=== PATIENT | male | born 1935 | race Two or more races ===

== ENCOUNTER 2018-04-25 19:57 | Inpatient (IN) | payer MEDICARE ==
[~2018-04-25] VITALS: Ht 172.7 cm; Wt 89.5 kg
[2018-04-25 20:33] LABS: BASOPHILS % (AUTO) 0.3 % (0.0-2.0); HEMATOCRIT 31.5 % (36.7-47.1); HEMOGLOBIN 10.7 g/dL (12.5-16.3); LYMPHOCYTES # (AUTO) 0.4 K/uL (20.0-40.0); LYMPHOCYTES % (AUTO) 10.7 % (20.5-51.5); MEAN CORPUSCULAR HEMOGLOBIN 30.3 uug (23.8-33.4); MEAN CORPUSCULAR HGB CONC 34 g/dL (32.5-36.3); MEAN CORPUSCULAR VOLUME 89.1 fL (73.0-96.2); MONOCYTES # (AUTO) 0.3 K/uL (2.0-10.0); MONOCYTES % (AUTO) 7.1 % (0.0-11.0); NEUTROPHILS # (AUTO) 3.1 K/uL (1.8-8.9); NEUTROPHILS % (AUTO) 80.9 % (38.5-71.5); PLATELET COUNT (AUTO) 122 K/uL (152-348); RED BLOOD CELL COUNT(AUTO) 3.53 MIL/uL (4.06-5.63); WHITE BLOOD COUNT (AUTO) 3.8 K/uL (3.6-10.2)
[2018-04-25 20:43] LABS: CARBON DIOXIDE 27 mmol/L (21-32); CHLORIDE 100 mmol/L (98-107); CREATININE 1.5 mg/dL (0.6-1.3); POTASSIUM 4.3 mmol/L (3.5-5.1); UREA NITROGEN, BLOOD 20 mg/dL (7-18)
[2018-04-25] MEDS ORDERED: INSULIN REGULAR, HUMAN 300 UNIT/3 ML VIAL ONE (20:45)
[2018-04-25] MEDS ORDERED: INSULIN REGULAR, HUMAN 1,000 UNITS/10 ML VIAL IV ONE (20:45)
[2018-04-25] MEDS ORDERED: IV NS 1000 ML 1,000 ML IV ONE (20:45)
[2018-04-25 20:51] LABS: GLUCOSE 492 mg/dL (74-106)
[2018-04-25 21:00] LABS: ALANINE AMINOTRANSFERASE 23 U/L (16-63); ALKALINE PHOSPHATASE 81 U/L (50-136); ASPARTATE AMINOTRANSFERASE 12 U/L (15-37); BILIRUBIN,DIRECT 0.2 mg/dL (0.0-0.2); BILIRUBIN,TOTAL 0.7 mg/dL (0.1-1.0)
[2018-04-25] MEDS ORDERED: ESCI10TA PO (21:00)
[2018-04-25] MEDS ORDERED: CYAN-10 IJ (21:00)
[2018-04-25] MEDS ORDERED: NITR0.4T48 SL (21:00)
[2018-04-25] MEDS ORDERED: QUET25TA PO (21:00)
[2018-04-25] MEDS ORDERED: INSU100V7 SQ (21:00)
[2018-04-25] MEDS ORDERED: MAGN400O6 PO (21:00)
[2018-04-25] MEDS ORDERED: CYAN10009 PO (21:00)
[2018-04-25] MEDS ORDERED: NA P133E RC (21:00)
[2018-04-25] MEDS ORDERED: ROSU20TA PO (21:00)
[2018-04-25] MEDS ORDERED: METF10004 PO (21:00)
[2018-04-25] MEDS ORDERED: FOLI1TAB16 PO (21:00)
[2018-04-25] MEDS ORDERED: BISA10SU12 RC (21:00)
[2018-04-25] MEDS ORDERED: MELO-107 PO (21:00)
[2018-04-25] MEDS ORDERED: TAMS-3 PO (21:00)
[2018-04-25] MEDS ORDERED: SITA50TA PO (21:00)
[2018-04-25] MEDS ORDERED: FINA5TAB11 PO (21:00)
[2018-04-25] MEDS ORDERED: ASPI-605 PO (21:00)
[2018-04-25] MEDS ORDERED: CARV3.122 PO (21:00)
[2018-04-25] MEDS ORDERED: PIPERACILLIN SODIUM/TAZOBACTAM 3.375 G in IV DEXTROSE 5% 50 ML IV ONE (21:30)
[2018-04-25] MEDS ORDERED: IV NORMAL SALINE 1000 ML BAG IV ONE (21:30)
[2018-04-25] MEDS ORDERED: PIPERACILLIN/TAZOBACTAM/D5W 50 ML IV ONE (21:49)
[2018-04-25 22:04] LABS: *BILIRUBIN,URIN NEGATIVE (NEGATIVE); *BLOOD, URINE NEGATIVE (NEGATIVE); *CLARITY,URINE SLIGHTLY CLOUDY (CLEAR); *COLOR,URINE YELLOW (YELLOW); *KETONES,URINE NEGATIVE (NEGATIVE); *PROTEIN,URINE NEGATIVE (NEGATIVE); *UROBILINOGEN,URINE 0.2 E.U./dl (NORMAL); LEUKOCYTE ESTERASE ,URINE TRACE (NEGATIVE); NITRITE, URINE NEGATIVE (NEGATIVE); PH,URINE 5.5 (5.0-8.0); UGLUCOSE 2+ (NEGATIVE)
[2018-04-25 22:14] LABS: SQUAMOUS EPITHELIAL CELL,UR FEW /HPF (NONE SEEN)
[2018-04-25 22:15] LABS: BACTERIA,URINE MODERATE /HPF (NONE SEEN); RBC,URINE 0-3 /HPF (0-3); WBC,URINE 20-50 /HPF (0-3)
[2018-04-25 23:30] VITALS: BP 92/54
[2018-04-25] MEDS ORDERED: ACETAMINOPHEN 325 MG TABLET PO PRN (23:30)
[2018-04-25] MEDS ORDERED: BISACODYL 10 MG SUPP.RECT RC PRN (23:30)
[2018-04-25] MEDS: INSULIN GLARGINE,HUM 300 UNITS/3 ML CARTRIDGE SQ SCH (23:30)
[2018-04-25] MEDS ORDERED: ZOLPIDEM 5 MG TABLET PO PRN (23:30)
[2018-04-25] MEDS ORDERED: FLEET ENEMA 133 ML BOTTLE RC PRN (23:30)
[2018-04-25] MEDS ORDERED: HYDROCODONE/APAP 5-325MG TABLET PO PRN (23:30)
[2018-04-25] MEDS ORDERED: MAGNESIUM HYDROXIDE 30 ML LIQUID UDC PO PRN ×2 (23:30)
[2018-04-25] MEDS ORDERED: Z GUARD REMEDY PASTE 57 GM TUBE TOP PRN (23:30)
[2018-04-25] MEDS ORDERED: NITROGLYCERIN 0.4 MG/TAB BOTTLE SL PRN (23:30)
[2018-04-25] MEDS ORDERED: ONDANSETRON 4 MG/2 ML VIAL IV PRN (23:30)
[2018-04-26] MEDS ORDERED: BLOOD SUGAR DIAGNOSTIC 1 EACH STRIP VI SCH
[2018-04-26] MEDS ORDERED: INSULIN REGULAR, HUMAN 300 UNIT/3 ML VIAL SQ PRN
[2018-04-26] MEDS ORDERED: DEXTROSE 50% 50 ML DISP.SYRIN IV PRN ×2
[2018-04-26] MEDS: BLOOD SUGAR DIAGNOSTIC 1 EACH STRIP VI SCH ×5 (00:42→21:07)
[2018-04-26] MEDS ORDERED: CEFTRIAXONE 1 G VIAL ONE (00:48)
[2018-04-26] MEDS: CEFTRIAXONE 1 G in IV DEXTROSE 5% 50 ML IV SCH ×2 (01:15→21:07)
[2018-04-26 03:33] VITALS: BP 127/62
[2018-04-26 06:38] LABS: BASOPHILS % (AUTO) 0.2 % (0.0-2.0); EOSINOPHILS # (AUTO) 0.1 K/uL (0.0-0.7); EOSINOPHILS % (AUTO) 2.3 % (0.0-7.0); HEMATOCRIT 28.2 % (36.7-47.1); HEMOGLOBIN 9.6 g/dL (12.5-16.3); LYMPHOCYTES # (AUTO) 0.6 K/uL (20.0-40.0); LYMPHOCYTES % (AUTO) 18.6 % (20.5-51.5); MEAN CORPUSCULAR HEMOGLOBIN 30.3 uug (23.8-33.4); MEAN CORPUSCULAR HGB CONC 34 g/dL (32.5-36.3); MEAN CORPUSCULAR VOLUME 88.4 fL (73.0-96.2); MONOCYTES # (AUTO) 0.4 K/uL (2.0-10.0); MONOCYTES % (AUTO) 11.2 % (0.0-11.0); NEUTROPHILS # (AUTO) 2.3 K/uL (1.8-8.9); NEUTROPHILS % (AUTO) 67.7 % (38.5-71.5); PLATELET COUNT (AUTO) 113 K/uL (152-348); RED BLOOD CELL COUNT(AUTO) 3.19 MIL/uL (4.06-5.63); WHITE BLOOD COUNT (AUTO) 3.5 K/uL (3.6-10.2)
[2018-04-26 06:49] LABS: ALANINE AMINOTRANSFERASE 22 U/L (16-63); ALKALINE PHOSPHATASE 73 U/L (50-136); ASPARTATE AMINOTRANSFERASE 13 U/L (15-37); BILIRUBIN,TOTAL 0.5 mg/dL (0.2-1.0); CARBON DIOXIDE 27 mmol/L (21-32); CHLORIDE 107 mmol/L (98-107); CHOLESTEROL 100 mg/dL (<200); CREATININE 1.4 mg/dL (0.6-1.3); GLUCOSE 254 mg/dL (74-106); HDL CHOLESTEROL 45 mg/dL (40-60); MAGNESIUM 1.9 mg/dL (1.8-2.4); PHOSPHOROUS 3.9 mg/dL (2.5-4.9); POTASSIUM 4.1 mmol/L (3.5-5.1); TRIGLYCERIDES 59 MG/DL (30-150); UREA NITROGEN, BLOOD 16 mg/dL (7-18)
[2018-04-26] MEDS: IV NS 1000 ML 1,000 ML IV PRN ×2 (06:59→16:12)
[2018-04-26 07:13] LABS: THYROID STIMULATING HORMONE 0.883 mIU/mL (0.358-3.740)
[2018-04-26] MEDS: INSULIN REGULAR, HUMAN 300 UNIT/3 ML VIAL SQ PRN ×4 (08:03→21:10)
[2018-04-26] MEDS: ASPIRIN EC 81 MG TABLET.DR PO SCH (08:04)
[2018-04-26] MEDS: CARVEDILOL 3.125 MG TABLET PO SCH ×2 (08:04→16:17)
[2018-04-26] MEDS: FOLIC ACID 1 MG TABLET PO SCH (08:05)
[2018-04-26] MEDS: LINAGLIPTIN 5 MG TABLET PO SCH (08:05)
[2018-04-26] MEDS: ESCITALOPRAM OXALATE 10 MG TABLET PO SCH (08:05)
[2018-04-26] MEDS: QUETIAPINE FUMARATE 25 MG TABLET PO SCH ×2 (08:05→16:18)
[2018-04-26] MEDS: FINASTERIDE 5 MG TABLET PO SCH (08:05)
[2018-04-26] MEDS: CYANOCOBALAMIN 1,000 MCG TABLET PO SCH (08:05)
[2018-04-26] MEDS: METFORMIN HCL 500 MG TABLET PO SCH ×2 (08:10→16:17)
[2018-04-26] MEDS ORDERED: Medication Not On Formulary EA (Rosuvastatin Calcium (Crestor) 20 MG) PO SCH (09:00)
[2018-04-26] MEDS ORDERED: Medication Not On Formulary EA (Meloxicam 15 MG) PO SCH (09:00)
[2018-04-26] MEDS ORDERED: Medication Not On Formulary EA (Metformin Hcl 1,000 MG) PO SCH (09:00)
[2018-04-26 16:05] VITALS: BP 134/59
[2018-04-26] MEDS: MELOXICAM 7.5 MG TABLET PO SCH (16:16)
[2018-04-26 19:00] VITALS: BP 113/55
[2018-04-26] MEDS: TAMSULOSIN HCL 0.4 MG CAP.SR.24H PO SCH (21:07)
[2018-04-26] MEDS: ATORVASTATIN 40 MG TABLET PO SCH (21:07)
[2018-04-26] MEDS: INSULIN GLARGINE,HUM 300 UNITS/3 ML CARTRIDGE SQ SCH (21:10)
[2018-04-27 04:00] VITALS: BP 113/54
[2018-04-27] MEDS: IV NS 1000 ML 1,000 ML IV PRN (06:49)
[2018-04-27] MEDS: BLOOD SUGAR DIAGNOSTIC 1 EACH STRIP VI SCH ×4 (06:53→20:36)
[2018-04-27] MEDS: METFORMIN HCL 500 MG TABLET PO SCH ×2 (08:28→17:14)
[2018-04-27] MEDS: MELOXICAM 7.5 MG TABLET PO SCH (08:28)
[2018-04-27] MEDS: ASPIRIN EC 81 MG TABLET.DR PO SCH (09:24)
[2018-04-27] MEDS: FOLIC ACID 1 MG TABLET PO SCH (09:24)
[2018-04-27] MEDS: ESCITALOPRAM OXALATE 10 MG TABLET PO SCH (09:25)
[2018-04-27] MEDS: CARVEDILOL 3.125 MG TABLET PO SCH ×2 (09:25→16:38)
[2018-04-27] MEDS: FINASTERIDE 5 MG TABLET PO SCH (09:25)
[2018-04-27] MEDS: LINAGLIPTIN 5 MG TABLET PO SCH (09:25)
[2018-04-27] MEDS: QUETIAPINE FUMARATE 25 MG TABLET PO SCH ×2 (09:25→16:38)
[2018-04-27] MEDS: CYANOCOBALAMIN 1,000 MCG TABLET PO SCH (09:25)
[2018-04-27 11:40] VITALS: BP 162/81
[2018-04-27] MEDS: INSULIN REGULAR, HUMAN 300 UNIT/3 ML VIAL SQ PRN ×2 (12:41→17:41)
[2018-04-27 19:00] VITALS: BP 131/59
[2018-04-27] MEDS: ATORVASTATIN 40 MG TABLET PO SCH (20:33)
[2018-04-27] MEDS: TAMSULOSIN HCL 0.4 MG CAP.SR.24H PO SCH (20:33)
[2018-04-27] MEDS: CEFTRIAXONE 1 G in IV DEXTROSE 5% 50 ML IV SCH (20:33)
[2018-04-27] MEDS: INSULIN GLARGINE,HUM 300 UNITS/3 ML CARTRIDGE SQ SCH (21:37)
[2018-04-27] MEDS ORDERED: CLONAZEPAM 0.5 MG TABLET ONE (22:39)
[2018-04-28] MEDS: IV NS 1000 ML 1,000 ML IV PRN (01:33)
[2018-04-28 04:00] VITALS: BP 126/50
[2018-04-28] MEDS: MELOXICAM 7.5 MG TABLET PO SCH (07:37)
[2018-04-28] MEDS: METFORMIN HCL 500 MG TABLET PO SCH ×2 (07:37→17:23)
[2018-04-28] MEDS: BLOOD SUGAR DIAGNOSTIC 1 EACH STRIP VI SCH ×4 (07:37→20:50)
[2018-04-28] MEDS: FOLIC ACID 1 MG TABLET PO SCH (08:06)
[2018-04-28] MEDS: ASPIRIN EC 81 MG TABLET.DR PO SCH (08:06)
[2018-04-28] MEDS: LINAGLIPTIN 5 MG TABLET PO SCH (08:06)
[2018-04-28] MEDS: FINASTERIDE 5 MG TABLET PO SCH (08:06)
[2018-04-28] MEDS: QUETIAPINE FUMARATE 25 MG TABLET PO SCH ×2 (08:07→16:47)
[2018-04-28] MEDS: ESCITALOPRAM OXALATE 10 MG TABLET PO SCH (08:07)
[2018-04-28] MEDS: CYANOCOBALAMIN 1,000 MCG TABLET PO SCH (08:07)
[2018-04-28] MEDS: CARVEDILOL 3.125 MG TABLET PO SCH ×2 (08:10→16:46)
[2018-04-28 11:32] VITALS: BP 112/60
[2018-04-28] MEDS: INSULIN REGULAR, HUMAN 300 UNIT/3 ML VIAL SQ PRN ×2 (12:40→17:25)
[2018-04-28 15:33] VITALS: BP 118/57
[2018-04-28 19:00] VITALS: BP 146/67
[2018-04-28] MEDS: ATORVASTATIN 40 MG TABLET PO SCH (20:48)
[2018-04-28] MEDS: TAMSULOSIN HCL 0.4 MG CAP.SR.24H PO SCH (20:48)
[2018-04-28] MEDS: CEFTRIAXONE 1 G in IV DEXTROSE 5% 50 ML IV SCH (20:50)
[2018-04-28] MEDS: INSULIN GLARGINE,HUM 300 UNITS/3 ML CARTRIDGE SQ SCH (20:50)
[2018-04-29 04:00] VITALS: BP 121/49
[2018-04-29] MEDS: BLOOD SUGAR DIAGNOSTIC 1 EACH STRIP VI SCH ×4 (06:39→20:40)
[2018-04-29] MEDS: ASPIRIN EC 81 MG TABLET.DR PO SCH (08:07)
[2018-04-29] MEDS: QUETIAPINE FUMARATE 25 MG TABLET PO SCH ×2 (08:07→17:04)
[2018-04-29] MEDS: LINAGLIPTIN 5 MG TABLET PO SCH (08:07)
[2018-04-29] MEDS: FOLIC ACID 1 MG TABLET PO SCH (08:08)
[2018-04-29] MEDS: CYANOCOBALAMIN 1,000 MCG TABLET PO SCH (08:08)
[2018-04-29] MEDS: FINASTERIDE 5 MG TABLET PO SCH (08:08)
[2018-04-29] MEDS: ESCITALOPRAM OXALATE 10 MG TABLET PO SCH (08:08)
[2018-04-29] MEDS: METFORMIN HCL 500 MG TABLET PO SCH ×2 (08:08→17:04)
[2018-04-29] MEDS: MELOXICAM 7.5 MG TABLET PO SCH (08:08)
[2018-04-29] MEDS: CARVEDILOL 3.125 MG TABLET PO SCH ×2 (08:11→17:08)
[2018-04-29 12:00] VITALS: BP 121/56
[2018-04-29 16:07] VITALS: BP 121/60
[2018-04-29] MEDS: CEFTRIAXONE 1 G in IV DEXTROSE 5% 50 ML IV SCH (20:18)
[2018-04-29] MEDS: TAMSULOSIN HCL 0.4 MG CAP.SR.24H PO SCH (20:18)
[2018-04-29] MEDS: ATORVASTATIN 40 MG TABLET PO SCH (20:18)
[2018-04-29 20:27] VITALS: BP 102/48
[2018-04-29] MEDS: INSULIN GLARGINE,HUM 300 UNITS/3 ML CARTRIDGE SQ SCH (20:27)
[2018-04-30 04:48] VITALS: BP 115/52
[2018-04-30] MEDS: BLOOD SUGAR DIAGNOSTIC 1 EACH STRIP VI SCH ×2 (06:35→12:10)
[2018-04-30] MEDS: ASPIRIN EC 81 MG TABLET.DR PO SCH (08:12)
[2018-04-30] MEDS: FINASTERIDE 5 MG TABLET PO SCH (08:13)
[2018-04-30] MEDS: MELOXICAM 7.5 MG TABLET PO SCH (08:13)
[2018-04-30] MEDS: METFORMIN HCL 500 MG TABLET PO SCH (08:13)
[2018-04-30] MEDS: ESCITALOPRAM OXALATE 10 MG TABLET PO SCH (08:13)
[2018-04-30] MEDS: LINAGLIPTIN 5 MG TABLET PO SCH (08:13)
[2018-04-30] MEDS: QUETIAPINE FUMARATE 25 MG TABLET PO SCH (08:13)
[2018-04-30] MEDS: CYANOCOBALAMIN 1,000 MCG TABLET PO SCH (08:13)
[2018-04-30] MEDS: CARVEDILOL 3.125 MG TABLET PO SCH (08:14)
[2018-04-30] MEDS: FOLIC ACID 1 MG TABLET PO SCH (08:14)
[2018-04-30 11:08] VITALS: BP 115/54
== END 2018-04-30 15:00 | DRG 871 ==
LOC: ER 20:01 → TELE 23:16 → MED 04-26 15:39
PROVIDERS: ADMIT Internal Medicine; ATTEND Internal Medicine
DX: A41.9 Sepsis, unspecified organism (principal); G92 Toxic encephalopathy; N17.0 Acute kidney failure with tubular necrosis; N39.0 Urinary tract infection, site not specified; F33.3 Major depressive disorder, recurrent, severe with psychotic symptoms; D63.8 Anemia in other chronic diseases classified elsewhere; E78.5 Hyperlipidemia, unspecified; F03.90 Unspecified dementia, unspecified severity, without behavioral disturbance, psychotic disturbance, mood disturbance, and anxiety; I25.10 Atherosclerotic heart disease of native coronary artery without angina pectoris; N40.1 Benign prostatic hyperplasia with lower urinary tract symptoms; Z86.73 Personal history of transient ischemic attack (TIA), and cerebral infarction without residual deficits; E86.9 Volume depletion, unspecified; N18.9 Chronic kidney disease, unspecified; I12.9 Hypertensive chronic kidney disease with stage 1 through stage 4 chronic kidney disease, or unspecified chronic kidney disease; E11.21 Type 2 diabetes mellitus with diabetic nephropathy; T39.395A Adverse effect of other nonsteroidal anti-inflammatory drugs [NSAID], initial encounter; Y92.009 Unspecified place in unspecified non-institutional (private) residence as the place of occurrence of the external cause; Z79.84 Long term (current) use of oral hypoglycemic drugs; F29 Unspecified psychosis not due to a substance or known physiological condition; N13.9 Obstructive and reflux uropathy, unspecified
CPT/HCPCS: 36415; 70030-TC; 70450; 71045; 83605; 83735; 84100; 84443; 85025; 85730; 87040; 87086; 93005; 97165; A4663; J0696; J1815; J2543; J7030; J7060

== ENCOUNTER 2018-10-29 20:00 | Inpatient (IN) | payer MEDICARE ==
[~2018-10-29] VITALS: Ht 182.9 cm; Wt 78.5 kg
[~2018-10-29 20:00] MED LIST: ACET-2154 PO; ACET325T53 PO; ALBU2.5V7 NEB; ALPR0.255 PO; ASPI-605 PO; ATOR40TA PO; BISA10SU12 RC; CARV3.122 PO; CYAN-10 IJ; CYAN10009 PO; ESCI10TA PO; ESCI10TA55 PO; FINA5TAB11 PO; FOLI1TAB16 PO; HYDR-3326 PO; INSU100V7 SQ; Insulin Glargine,Hum SQ; MAGN400O6 PO; MELO-107 PO; METF-442 PO; MINE133E RC; NA P133E RC; NITR0.4T48 SL; ONDA4SYR IJ; ONDA4VIA23 IJ; PANT40TA2 IV; PANT40VI IV; QUET25TA PO; ROSU20TA2 PO; SITA50TA PO; TAMS-3 PO; TAMS0.4C34 PO; [UNRECOGNIZED DRUG - CODE] IV
--- NOTE | 2018-10-29 20:02 | NUR ---
Patient BIB EMS. He was in process of moving to an assisted living facility from his house. He developed SOB/Anxiety at that time. 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 Noted with increased work of breathing. patient is AAOx4.
[2018-10-29] MEDS ORDERED: ALBUTEROL SULFATE 2.5 MG/3 ML NEBU ONE (20:14)
[2018-10-29] MEDS ORDERED: ALBUTEROL SULFATE 2.5 MG/3 ML NEBU NEB ONE (20:15)
--- NOTE | 2018-10-29 20:19 | NUR ---
RT at bedside
[2018-10-29 20:21] LABS: BASOPHILS % (AUTO) 0.1 % (0.0-2.0); EOSINOPHILS # (AUTO) 0.1 K/uL (0.0-0.7); EOSINOPHILS % (AUTO) 1.6 % (0.0-7.0); HEMATOCRIT 29.2 % (36.7-47.1); HEMOGLOBIN 9.8 g/dL (12.5-16.3); LYMPHOCYTES # (AUTO) 0.9 K/uL (20.0-40.0); LYMPHOCYTES % (AUTO) 12.9 % (20.5-51.5); MEAN CORPUSCULAR HEMOGLOBIN 29.9 uug (23.8-33.4); MEAN CORPUSCULAR HGB CONC 34 g/dL (32.5-36.3); MEAN CORPUSCULAR VOLUME 89.2 fL (73.0-96.2); MONOCYTES # (AUTO) 0.4 K/uL (2.0-10.0); MONOCYTES % (AUTO) 5.3 % (0.0-11.0); NEUTROPHILS # (AUTO) 5.8 K/uL (1.8-8.9); NEUTROPHILS % (AUTO) 80.1 % (38.5-71.5); PLATELET COUNT (AUTO) 195 K/uL (152-348); RED BLOOD CELL COUNT(AUTO) 3.27 MIL/uL (4.06-5.63); WHITE BLOOD COUNT (AUTO) 7.3 K/uL (3.6-10.2)
[2018-10-29] MEDS ORDERED: NITROGLYCERIN 4.9 GM SPRAY TL ONE (20:29)
[2018-10-29] MEDS ORDERED: FUROSEMIDE 40 MG/4 ML VIAL ONE ×2 (20:29→20:58)
[2018-10-29 20:31] LABS: CARBON DIOXIDE 28 mmol/L (21-32); CHLORIDE 101 mmol/L (98-107); CREATININE 1.7 mg/dL (0.6-1.3); POTASSIUM 4.2 mmol/L (3.5-5.1); UREA NITROGEN, BLOOD 18 mg/dL (7-18)
--- NOTE | 2018-10-29 20:33 | NUR ---
Patient noted with increasing SOB @ 2028, given 40mg IVP Lasix @ 2029, BP @ 182/107. Nitro Intranasal [place] x 1 given @ 2029 by ER . Second spray given @ 2032 by ER . BP @ 2034 is 177/105.
[2018-10-29 20:35] LABS: GLUCOSE 362 mg/dL (74-106)
[2018-10-29 20:37] LABS: ALANINE AMINOTRANSFERASE 19 U/L (16-63); ALKALINE PHOSPHATASE 115 U/L (50-136); ASPARTATE AMINOTRANSFERASE 9 U/L (15-37); BILIRUBIN,DIRECT 0.1 mg/dL (0.0-0.2); BILIRUBIN,TOTAL 0.5 mg/dL (0.2-1.0); TOTAL PROTEIN, SERUM 7.8 g/dL (6.4-8.2)
[2018-10-29] MEDS ORDERED: MORPHINE SULFATE 4 MG/1 ML DISP.SYRIN ONE (20:39)
[2018-10-29] MEDS ORDERED: ONDANSETRON 4 MG/2 ML VIAL ONE (20:39)
[2018-10-29] MEDS ORDERED: FUROSEMIDE 20 MG/2 ML VIAL IV ONE ×2 (20:45→21:00)
[2018-10-29] MEDS ORDERED: MORPHINE SULFATE 2 MG/1 ML DISP.SYRIN IV ONE (20:45)
[2018-10-29] MEDS ORDERED: ONDANSETRON 4 MG/2 ML VIAL IV ONE (20:45)
[2018-10-29] MEDS: NITROGLYCERIN 4.9 GM SPRAY TL PRN ×2 (20:46→20:59)
--- NOTE | 2018-10-29 20:47 | NUR ---
3rd Nitro [place] given by ER @ 2034. BP 172/103
--- NOTE | 2018-10-29 20:49 | NUR ---
1 dose of Intranasal Nitro given by PATI GRIGGS at this time. BP 170/92
--- NOTE | 2018-10-29 21:20 | NUR ---
Patient noted with inproving respirations, decreased work of breathing at this time. No acute distress noted. VSS
[2018-10-29] MEDS ORDERED: BUMETANIDE INJ 6 MG in IV DEXTROSE 5% 36 ML IV ONE (21:30)
[2018-10-29] MEDS ORDERED: NITROGLYCERIN OINT 1 GM PACKET TP ONE (21:30)
--- NOTE | 2018-10-29 21:40 | NUR ---
Pt. admitted to Tele TD , under care of Randal Maldonado. Report given to Emily MARTINEZ on CCU. Patient admitted as Tele TD, going to room CCU3 Belongs List completed
--- NOTE | 2018-10-29 22:00 | NUR ---
Admitted to CCU-3 as CHRIS Status, Dx: CHF under the services of Dr. Randal Maldonado/[facility]. Came in from ER via gurney on 100% non-rebreather mask, in no acute distress. Routine CCU/CHRIS admission care rendered. Dr. Rene Maldonado notified of admission. Son Cooper here for brief time. Plans of care explained to son and pt; all belongings sent home with son.
[2018-10-29 22:10] VITALS: BP 114/81
[2018-10-29] MEDS ORDERED: NITROGLYCERIN 0.4 MG/TAB BOTTLE SL PRN (22:45)
[2018-10-29] MEDS ORDERED: DEXTROSE 50% 50 ML DISP.SYRIN IV PRN (22:45)
[2018-10-29 23:00] VITALS: BP 116/68
[2018-10-29] MEDS ORDERED: ONDANSETRON 4 MG/2 ML VIAL IV PRN (23:30)
[2018-10-29] MEDS ORDERED: Z GUARD REMEDY PASTE 57 GM TUBE TOP PRN (23:30)
[2018-10-29] MEDS ORDERED: HYDROCODONE/APAP 5-325MG TABLET PO PRN (23:30)
[2018-10-29] MEDS ORDERED: ZOLPIDEM 5 MG TABLET PO PRN (23:30)
[2018-10-29] MEDS ORDERED: MORPHINE SULFATE 4 MG/1 ML DISP.SYRIN IV PRN (23:30)
[2018-10-29] MEDS ORDERED: ACETAMINOPHEN 325 MG TABLET PO PRN (23:30)
[2018-10-29] MEDS ORDERED: ENOXAPARIN SODIUM 40 MG/0.4 ML DISP.SYRIN SQ SCH (23:30)
[2018-10-29 23:59] VITALS: BP 123/63
[2018-10-30] VITALS (14 sets, daily range): BP systolic 87–140; BP diastolic 43–75
[2018-10-30] MEDS ORDERED: ENOXAPARIN SODIUM 40 MG/0.4 ML DISP.SYRIN SQ ONE (00:15)
[2018-10-30] MEDS ORDERED: ENOXAPARIN SODIUM 40 MG/0.4 ML DISP.SYRIN SQ SCH ×2 (00:15→21:00)
--- NOTE | 2018-10-30 00:15 | NUR ---
Lovenox 40 mg timed by [facility] for 0015 NOT GIVEN; already given at 2345 on 2018.
--- NOTE | 2018-10-30 00:30 | NUR ---
Pt was placed on Bumex drip and has been voiding large frequent amounts of clear pale yellow urine. Encouraged to sleep in between activities. O2 titrating to keep sat above 92%, now on nasal cannula and continues to saturate well.
[2018-10-30] MEDS ORDERED: POTASSIUM CHLORIDE 20 MEQ TAB.PRT.SR PO ONE (04:00)
[2018-10-30 05:25] LABS: BASOPHILS % (AUTO) 0.1 % (0.0-2.0); EOSINOPHILS % (AUTO) 0.6 % (0.0-7.0); HEMATOCRIT 25.6 % (36.7-47.1); LYMPHOCYTES # (AUTO) 1.2 K/uL (20.0-40.0); LYMPHOCYTES % (AUTO) 15.3 % (20.5-51.5); MEAN CORPUSCULAR HEMOGLOBIN 30.5 uug (23.8-33.4); MEAN CORPUSCULAR HGB CONC 35 g/dL (32.5-36.3); MEAN CORPUSCULAR VOLUME 86.6 fL (73.0-96.2); MONOCYTES # (AUTO) 0.5 K/uL (2.0-10.0); MONOCYTES % (AUTO) 6.4 % (0.0-11.0); NEUTROPHILS % (AUTO) 77.6 % (38.5-71.5); PLATELET COUNT (AUTO) 193 K/uL (152-348); RED BLOOD CELL COUNT(AUTO) 2.96 MIL/uL (4.06-5.63); WHITE BLOOD COUNT (AUTO) 7.7 K/uL (3.6-10.2)
[2018-10-30 05:37] LABS: ALANINE AMINOTRANSFERASE 17 U/L (16-63); ALKALINE PHOSPHATASE 106 U/L (50-136); ASPARTATE AMINOTRANSFERASE 8 U/L (15-37); BILIRUBIN,TOTAL 0.6 mg/dL (0.2-1.0); CARBON DIOXIDE 33 mmol/L (21-32); CHLORIDE 101 mmol/L (98-107); CHOLESTEROL 127 mg/dL (<200); CREATININE 1.7 mg/dL (0.6-1.3); GLUCOSE 296 mg/dL (74-106); HDL CHOLESTEROL 44 mg/dL (40-60); MAGNESIUM 1.8 mg/dL (1.8-2.4); PHOSPHOROUS 3.9 mg/dL (2.5-4.9); POTASSIUM 3.8 mmol/L (3.5-5.1); TOTAL PROTEIN, SERUM 7.5 g/dL (6.4-8.2); TRIGLYCERIDES 82 MG/DL (30-150); UREA NITROGEN, BLOOD 18 mg/dL (7-18)
[2018-10-30 05:45] LABS: THYROID STIMULATING HORMONE 1.301 mIU/mL (0.358-3.740)
--- NOTE | 2018-10-30 06:00 | NUR ---
Comfortable night, denies pain/discomfort. Titrating o2 and tolerated well. Continues to diurese with Bumex drip completed. Please see CCU/CHRIS flowsheet for trends and clinical data.
[2018-10-30] MEDS: BLOOD SUGAR DIAGNOSTIC 1 EACH STRIP VI SCH ×4 (07:57→21:04)
[2018-10-30] MEDS: CARVEDILOL 3.125 MG TABLET PO SCH ×2 (08:06→16:35)
[2018-10-30] MEDS: FINASTERIDE 5 MG TABLET PO SCH (08:06)
[2018-10-30] MEDS: FOLIC ACID 1 MG TABLET PO SCH (08:06)
[2018-10-30] MEDS: ASPIRIN EC 81 MG TABLET.DR PO SCH (08:06)
[2018-10-30] MEDS: ESCITALOPRAM OXALATE 10 MG TABLET PO SCH (08:06)
--- NOTE | 2018-10-30 08:56 | NUR ---
Patient seen by Nephrology services, Dr. Sim full report given see order hx.
--- NOTE | 2018-10-30 10:00 | NUR ---
After many accidents using the urinal condom catheter applied.
[2018-10-30] MEDS ORDERED: BUMETANIDE INJ 4 MG in IV DEXTROSE 5% 24 ML IV ONE (12:00)
--- NOTE | 2018-10-30 12:00 | NUR ---
Patient attempting to remove condom catheter and educated on the need of catheter due to high urine output. Patient becoming verbally abusive.
[2018-10-30] MEDS: HEPARIN/D5W DRIP 500 ML IV PRN (13:02)
--- NOTE | 2018-10-30 14:00 | NUR ---
Patient verbally abusive towards staff using profanities to call for attention. Instructed to be polite respectful.
--- NOTE | 2018-10-30 17:10 | NUR ---
Pt's son Mr Staci Molina at bedside and updated on his dad current condition.
--- NOTE | 2018-10-30 17:11 | NUR ---
Condom catheter with a total of 1350 sedimented pale yellowish output. Pt. instructed not to touch or pull condom catheter. Verbalized understanding at this time.
--- NOTE | 2018-10-30 20:52 | NUR ---
Patient on Heparin gtt.; held Dr Erica Pulido aware.
[2018-10-30] MEDS: INSULIN REGULAR, HUMAN 300 UNIT/3 ML VIAL SQ PRN (21:03)
[2018-10-30] MEDS: INSULIN GLARGINE,HUM 300 UNITS/3 ML CARTRIDGE SQ SCH (21:04)
[2018-10-30] MEDS: TAMSULOSIN HCL 0.4 MG CAP.SR.24H PO SCH (21:06)
[2018-10-30] MEDS: QUETIAPINE FUMARATE 25 MG TABLET PO SCH (21:06)
--- NOTE | 2018-10-31 | NUR ---
TRANSFERRED TO ROOM 210 FROM CCU OVERFLOW; ONGOING HEPARIN DRIP; APPARENTLY PER BRYANNA MARTINEZ, NOT FOLLOWING [facility] PROTOCOL AND IS BEING MANAGED BY , PTT AT 0230H
--- NOTE | 2018-10-31 03:15 | NUR ---
RESULT FOR PTT NOT AVAILABLE PER LAB
--- NOTE | 2018-10-31 03:55 | NUR ---
PTT 46.5, RELAYED TO Dennis PALOMO NP, EXPLAINED THAT WE ARE NOT USING [facility] PROTOCOL PER DR GORDON; SHE ORDERED PTT AT 1000H WITH HEPARIN REMAINS AT THE SAME RATE.
--- NOTE | 2018-10-31 05:47 | NUR ---
NEW CONDOM CATH APPLIED ; NEEDS URINE FOR LAB
[2018-10-31] MEDS: BLOOD SUGAR DIAGNOSTIC 1 EACH STRIP VI SCH ×6 (06:42→21:31)
--- NOTE | 2018-10-31 07:30 | NUR ---
BLOOD SUGAR 63 THIS am; APPLE JUICE GIVEN; REPEAT ACCUCHECK IS 115; ENDORSED TO NURSE MORIAH.
[2018-10-31 08:00] VITALS: BP 98/50
[2018-10-31] MEDS: FINASTERIDE 5 MG TABLET PO SCH (08:40)
[2018-10-31] MEDS: ASPIRIN EC 81 MG TABLET.DR PO SCH (08:40)
[2018-10-31] MEDS: FOLIC ACID 1 MG TABLET PO SCH (08:40)
[2018-10-31] MEDS: ESCITALOPRAM OXALATE 10 MG TABLET PO SCH (08:40)
[2018-10-31] MEDS: CARVEDILOL 3.125 MG TABLET PO SCH ×2 (08:41→16:54)
[2018-10-31 10:33] LABS: BASOPHILS % (AUTO) 0.2 % (0.0-2.0); EOSINOPHILS # (AUTO) 0.1 K/uL (0.0-0.7); HEMOGLOBIN 8.1 g/dL (12.5-16.3); LYMPHOCYTES # (AUTO) 1.2 K/uL (20.0-40.0); LYMPHOCYTES % (AUTO) 19.2 % (20.5-51.5); MEAN CORPUSCULAR HEMOGLOBIN 30.5 uug (23.8-33.4); MEAN CORPUSCULAR HGB CONC 35 g/dL (32.5-36.3); MEAN CORPUSCULAR VOLUME 86.9 fL (73.0-96.2); MONOCYTES # (AUTO) 0.4 K/uL (2.0-10.0); MONOCYTES % (AUTO) 7.2 % (0.0-11.0); NEUTROPHILS # (AUTO) 4.3 K/uL (1.8-8.9); NEUTROPHILS % (AUTO) 71.4 % (38.5-71.5); PLATELET COUNT (AUTO) 167 K/uL (152-348); RED BLOOD CELL COUNT(AUTO) 2.65 MIL/uL (4.06-5.63)
[2018-10-31 10:39] LABS: *BILIRUBIN,URIN NEGATIVE (NEGATIVE); *BLOOD, URINE 1+ (NEGATIVE); *CLARITY,URINE CLOUDY (CLEAR); *COLOR,URINE YELLOW (YELLOW); *KETONES,URINE NEGATIVE (NEGATIVE); *UROBILINOGEN,URINE 0.2 E.U./dl (NORMAL); LEUKOCYTE ESTERASE ,URINE 1+ (NEGATIVE); NITRITE, URINE NEGATIVE (NEGATIVE); PH,URINE 5.5 (5.0-8.0); UGLUCOSE TRACE (NEGATIVE)
[2018-10-31 10:45] LABS: CARBON DIOXIDE 32 mmol/L (21-32); CHLORIDE 98 mmol/L (98-107); CREATININE 1.9 mg/dL (0.6-1.3); MAGNESIUM 1.6 mg/dL (1.8-2.4); PHOSPHOROUS 4.8 mg/dL (2.5-4.9); POTASSIUM 3.6 mmol/L (3.5-5.1); UREA NITROGEN, BLOOD 29 mg/dL (7-18)
[2018-10-31 10:48] LABS: *CREATININE,URINE 122.8 mg/dL (30-125); *URINE TOTAL PROTEIN RANDOM 43.4 mg/dL (<150/24HR)
[2018-10-31 10:54] LABS: GLUCOSE 342 mg/dL (74-106)
[2018-10-31 11:08] LABS: BACTERIA,URINE FEW /HPF (NONE SEEN); SQUAMOUS EPITHELIAL CELL,UR FEW /HPF (NONE SEEN); WBC,URINE TNTC /HPF (0-3); YEAST,URINE BUDDING YEAST /HPF (NONE SEEN)
[2018-10-31] MEDS: FUROSEMIDE 40 MG/4 ML VIAL IV SCH (11:52)
[2018-10-31 12:00] VITALS: BP 110/54
[2018-10-31] MEDS: MAGNESIUM SULFATE/D5W 100 ML IV SCH ×2 (12:00→13:56)
[2018-10-31] MEDS: INSULIN REGULAR, HUMAN 300 UNIT/3 ML VIAL SQ PRN ×3 (12:26→21:33)
[2018-10-31 16:00] VITALS: BP 118/56
--- NOTE | 2018-10-31 16:20 | NUR ---
Dr. Rubio here to see pt. Full report given. stated to continue the IV heparin drip for now as ordered.
--- NOTE | 2018-10-31 17:55 | NUR ---
Late blood draw for aPTT 1600 by financial advisor trainee. Lab and pharmacy called and made aware regrading late draw.
--- NOTE | 2018-10-31 18:05 | NUR ---
Spoke with DNP Randal Maldonado on the telephone and reported aPTT of 40.5. DNP stated to override protocol and increase by 150 units/hr. Pharmacy notified of changed and made aware.
[2018-10-31 19:26] VITALS: BP 113/53
[2018-10-31] MEDS: TAMSULOSIN HCL 0.4 MG CAP.SR.24H PO SCH (21:20)
[2018-10-31] MEDS: QUETIAPINE FUMARATE 25 MG TABLET PO SCH (21:21)
[2018-10-31] MEDS: INSULIN GLARGINE,HUM 300 UNITS/3 ML CARTRIDGE SQ SCH (21:33)
[2018-10-31 23:25] VITALS: BP 113/58
--- NOTE | 2018-11-01 00:15 | NUR ---
Held Heparin drip for now for 12 midnight PTT blood draw sched.
--- NOTE | 2018-11-01 01:00 | NUR ---
APTT 54.1, MD notified. No change of dose rate 1,450 units/hr. Repeat APTT at 6:00 AM. Patient resting comfortably, sinus rhythm on the monitor.
[2018-11-01 03:21] VITALS: BP 120/59
[2018-11-01] MEDS: HEPARIN/D5W DRIP 500 ML IV PRN (03:29)
[2018-11-01] MEDS: BLOOD SUGAR DIAGNOSTIC 1 EACH STRIP VI SCH ×5 (05:54→22:02)
--- NOTE | 2018-11-01 06:33 | NUR ---
Awaiting for 6:00 AM APTT result.
[2018-11-01 06:36] LABS: BASOPHILS % (AUTO) 0.3 % (0.0-2.0); EOSINOPHILS # (AUTO) 0.2 K/uL (0.0-0.7); EOSINOPHILS % (AUTO) 3.3 % (0.0-7.0); LYMPHOCYTES # (AUTO) 1.7 K/uL (20.0-40.0); LYMPHOCYTES % (AUTO) 33.1 % (20.5-51.5); MEAN CORPUSCULAR HEMOGLOBIN 30.5 uug (23.8-33.4); MEAN CORPUSCULAR HGB CONC 35 g/dL (32.5-36.3); MEAN CORPUSCULAR VOLUME 87.7 fL (73.0-96.2); MONOCYTES # (AUTO) 0.4 K/uL (2.0-10.0); MONOCYTES % (AUTO) 7.1 % (0.0-11.0); NEUTROPHILS # (AUTO) 2.9 K/uL (1.8-8.9); NEUTROPHILS % (AUTO) 56.2 % (38.5-71.5); PLATELET COUNT (AUTO) 169 K/uL (152-348); RED BLOOD CELL COUNT(AUTO) 2.62 MIL/uL (4.06-5.63); WHITE BLOOD COUNT (AUTO) 5.2 K/uL (3.6-10.2)
[2018-11-01 06:46] LABS: CARBON DIOXIDE 32 mmol/L (21-32); CHLORIDE 101 mmol/L (98-107); CREATININE 1.7 mg/dL (0.6-1.3); GLUCOSE 180 mg/dL (74-106); PHOSPHOROUS 4.3 mg/dL (2.5-4.9); POTASSIUM 3.6 mmol/L (3.5-5.1); UREA NITROGEN, BLOOD 27 mg/dL (7-18)
--- NOTE | 2018-11-01 06:59 | NUR ---
6:00 am APTT no result yet. Called the lab for ff-up.
[2018-11-01] MEDS: FOLIC ACID 1 MG TABLET PO SCH (08:28)
[2018-11-01] MEDS: INSULIN REGULAR, HUMAN 300 UNIT/3 ML VIAL SQ PRN ×3 (08:28→16:58)
[2018-11-01] MEDS: ESCITALOPRAM OXALATE 10 MG TABLET PO SCH (08:29)
[2018-11-01] MEDS: FINASTERIDE 5 MG TABLET PO SCH (08:29)
[2018-11-01] MEDS: CARVEDILOL 3.125 MG TABLET PO SCH ×2 (08:30→16:59)
[2018-11-01] MEDS: ASPIRIN EC 81 MG TABLET.DR PO SCH (08:30)
[2018-11-01] MEDS: FUROSEMIDE 40 MG/4 ML VIAL IV SCH (08:30)
[2018-11-01 09:46] VITALS: BP 125/63
--- NOTE | 2018-11-01 09:59 | NUR ---
PATIENT ABLE TO USE URINAL BUT IS ALSO INCONTINENT.
[2018-11-01 11:06] VITALS: BP 117/69
--- NOTE | 2018-11-01 11:30 | NUR ---
RAUL GORDON OF CRITICAL BLOOD SUGAR RESULT. PATIENT'S DIET CHANGED TO CONSISTENT 45 G CARB. DIET AND GIVE ADDITIONAL 10 UNITS OF REGULAR INSULIN IN ADDITION TO SLIDING SCALE. TOTAL DOSE 20 UNITS.
[2018-11-01] MEDS ORDERED: INSULIN REGULAR, HUMAN 300 UNIT/3 ML VIAL SQ ONE (11:45)
--- NOTE | 2018-11-01 11:50 | NUR ---
Received diet consult for this patient. Son stated that he has diabetes and requested his father be put on a [facility] diet. Diabetic diet is appropriate and will be provided to patient. Addendum: 11/01/18 at [address] Amended: Links added.
[2018-11-01 15:03] VITALS: BP 118/70
--- NOTE | 2018-11-01 19:30 | NUR ---
Received patient awake in bed, not in any form of distress. Patient is alert and oriented x 4. With oxygen support at 3lpm via nasal cannula, tolerated and maintained. With tele monitor, patient on normal sinus rhythm. With IV access at left upper arm to saline lock, patent and intact. No complaints of chest pain. Bed in low position, side rails up x 2, call light within reach. Noise and lights subdued. Will continue to monitor.
[2018-11-01 20:20] VITALS: BP 100/54
[2018-11-01] MEDS: TAMSULOSIN HCL 0.4 MG CAP.SR.24H PO SCH (20:58)
[2018-11-01] MEDS: INSULIN GLARGINE,HUM 300 UNITS/3 ML CARTRIDGE SQ SCH (21:00)
[2018-11-01] MEDS: QUETIAPINE FUMARATE 25 MG TABLET PO SCH ×2 (21:00→23:06)
--- NOTE | 2018-11-01 21:00 | NUR ---
Patient's blood pressure is 100/54, held seroquel.
--- NOTE | 2018-11-01 21:15 | NUR ---
Noted blood sugar at 56mg/dl, patient asymptomatic, gave patient orange juice and will recheck blood sugar. Will continue to monitor.
--- NOTE | 2018-11-01 22:00 | NUR ---
Blood sugar rechecked and currently at 93mg/dl. Patient has scheduled Lantus 12units at bedtime, referred to Dr. Randal Maldonado if this dose should be held.
--- NOTE | 2018-11-01 22:30 | NUR ---
Per Dr. Randal Alas hold Lantus dose and adjustment will be needed.
[2018-11-02 00:14] VITALS: BP 99/52
[2018-11-02 04:20] VITALS: BP_SYST 111; BP_DIAS 51; BP_DIAS 57
[2018-11-02 06:28] LABS: BASOPHILS % (AUTO) 0.2 % (0.0-2.0); EOSINOPHILS # (AUTO) 0.2 K/uL (0.0-0.7); EOSINOPHILS % (AUTO) 3.3 % (0.0-7.0); HEMATOCRIT 22.8 % (36.7-47.1); HEMOGLOBIN 8.1 g/dL (12.5-16.3); LYMPHOCYTES # (AUTO) 1.8 K/uL (20.0-40.0); LYMPHOCYTES % (AUTO) 28.7 % (20.5-51.5); MEAN CORPUSCULAR HEMOGLOBIN 30.6 uug (23.8-33.4); MEAN CORPUSCULAR HGB CONC 35 g/dL (32.5-36.3); MEAN CORPUSCULAR VOLUME 86.6 fL (73.0-96.2); MONOCYTES # (AUTO) 0.6 K/uL (2.0-10.0); MONOCYTES % (AUTO) 9.4 % (0.0-11.0); NEUTROPHILS # (AUTO) 3.6 K/uL (1.8-8.9); NEUTROPHILS % (AUTO) 58.4 % (38.5-71.5); PLATELET COUNT (AUTO) 170 K/uL (152-348); RED BLOOD CELL COUNT(AUTO) 2.64 MIL/uL (4.06-5.63); WHITE BLOOD COUNT (AUTO) 6.2 K/uL (3.6-10.2)
[2018-11-02] MEDS: BLOOD SUGAR DIAGNOSTIC 1 EACH STRIP VI SCH ×3 (06:44→16:44)
--- NOTE | 2018-11-02 06:52 | NUR ---
Patient was able to sleep, no complaints made throughout the shift. Morning blood sugar is 98mg/dl. IV access at left antecubital, intact. Ensured patient safety and comfort.
[2018-11-02 07:00] LABS: CARBON DIOXIDE 32 mmol/L (21-32); CHLORIDE 101 mmol/L (98-107); GLUCOSE 99 mg/dL (74-106); MAGNESIUM 1.9 mg/dL (1.8-2.4); PHOSPHOROUS 4.4 mg/dL (2.5-4.9); POTASSIUM 3.8 mmol/L (3.5-5.1); UREA NITROGEN, BLOOD 32 mg/dL (7-18)
--- NOTE | 2018-11-02 08:00 | NUR ---
AWAKE FORGETFUL BUT ABLE TO FOLLOW SIMPLE DIRECTION NO PAIN OR SOB ,EAT WELL ON FALL PRECAUTION CALL [facility] IN REACH AND BED ALARM ON
[2018-11-02] MEDS: FUROSEMIDE 40 MG/4 ML VIAL IV SCH (08:16)
[2018-11-02] MEDS: ASPIRIN EC 81 MG TABLET.DR PO SCH (08:16)
[2018-11-02] MEDS: CARVEDILOL 3.125 MG TABLET PO SCH ×2 (08:16→16:46)
[2018-11-02] MEDS: FINASTERIDE 5 MG TABLET PO SCH (08:16)
[2018-11-02] MEDS: ESCITALOPRAM OXALATE 10 MG TABLET PO SCH (08:16)
[2018-11-02] MEDS: FOLIC ACID 1 MG TABLET PO SCH (08:16)
--- NOTE | 2018-11-02 10:00 | NUR ---
DR VEAN SUH SEEN PATIENT AND LAB RESULT AND ORDER OK TO D/C HOME TODAY WITH PRECRIPTION ORDER
[2018-11-02] MEDS ORDERED: INSU100V7 SQ (10:13)
[2018-11-02] MEDS ORDERED: BUME2TAB3 PO (10:13)
[2018-11-02 11:02] VITALS: BP 120/56
--- NOTE | 2018-11-02 12:00 | NUR ---
FAMILY SON WAS INFORM OF DISCHARGE TO [facility]ISTED [facility] TODAY STATE WILL MANAGER RECRUITMENT AT 5PM AND PATIENT WAS INFORM
[2018-11-02] MEDS: INSULIN REGULAR, HUMAN 300 UNIT/3 ML VIAL SQ PRN ×2 (12:20→16:53)
[2018-11-02 15:01] VITALS: BP 115/70
[2018-11-02 15:30] VITALS: BP 115/72
[2018-11-02 16:46] VITALS: BP 117/60
--- NOTE | 2018-11-02 18:00 | NUR ---
STABLE HEMODYNAMIC STATUS NO RESPIRATORY DISTRESS SAFETY MEASURE PROVIDED CALL LIGHT IN REACH
--- NOTE | 2018-11-02 19:32 | NUR ---
Received patient awake in bed, not in any form of distress. [facility] Awaiting for son to pick up worker patient and transfer him to the assisted living. Noted all paperwork processed by bindu Rojas shift RN. Patient no longer have an IV access. Will ensure safety and comfort until patient gets discharged.
--- NOTE | 2018-11-02 19:55 | NUR ---
Patient discharged, picked up by son Jermaine. Patient was accompanied by DAVID Walker via [facility] lobby. ID band was removed prior to discharge. Discharge instructions and paperwork given to patient's son Jermaine, who verbalized understanding of instructions.
== END 2018-11-02 19:58 | DRG 280 ==
LOC: ER 20:00 → CCU 21:48 → MED 10-30 23:49 → TELE-TD 10-30 23:50 → TELE 10-31 17:04 → MED 11-02 11:58
PROVIDERS: ADMIT Nurse Practitioner Acute Care; ATTEND Nurse Practitioner Acute Care
DX: I13.0 Hypertensive heart and chronic kidney disease with heart failure and stage 1 through stage 4 chronic kidney disease, or unspecified chronic kidney disease (principal); I50.43 Acute on chronic combined systolic (congestive) and diastolic (congestive) heart failure; I21.4 Non-ST elevation (NSTEMI) myocardial infarction; J96.01 Acute respiratory failure with hypoxia; N17.0 Acute kidney failure with tubular necrosis; E44.1 Mild protein-calorie malnutrition; N39.0 Urinary tract infection, site not specified; E87.1 Hypo-osmolality and hyponatremia; E11.22 Type 2 diabetes mellitus with diabetic chronic kidney disease; E11.65 Type 2 diabetes mellitus with hyperglycemia; N18.9 Chronic kidney disease, unspecified; Z79.4 Long term (current) use of insulin; I25.5 Ischemic cardiomyopathy; I25.10 Atherosclerotic heart disease of native coronary artery without angina pectoris; Z95.1 Presence of aortocoronary bypass graft; Z68.23 Body mass index [BMI] 23.0-23.9, adult; I35.0 Nonrheumatic aortic (valve) stenosis; Z87.891 Personal history of nicotine dependence; N40.0 Benign prostatic hyperplasia without lower urinary tract symptoms; D63.8 Anemia in other chronic diseases classified elsewhere; I25.2 Old myocardial infarction
CPT/HCPCS: 36415; 70030-TC; 71045; 76770; 83735; 84100; 84156; 84300; 84443; 85025; 85730; 93005; 93307; A4663; G0378; J1644; J1650; J1815; J1940; J2270; J2405; J3475; J3490; J3535; J7050; J7060